=== PATIENT | male | born 1955 | race Caucasian/White ===

== ENCOUNTER → 2021-02-23 | Outpatient (CLI) | payer OTHER ==
[~2021-02-23] MED LIST: ASPIRIN81 MG PO; BRILINTA90 MG PO; BUPROPION HCL75 MG PO; GLYNASE 3 MG TAB3 MG PO; HUMALOG100 UNIT/1 SQ; LANTUS100 UNIT/1 SQ; LIPITOR TAB 2020 MG PO; LISINOPRIL2.5 MG PO; METFORMIN HCL1000 MG PO; METOPROLOL TART25 MG PO
== END ==
LOC: HEART 5 08:30
DX: I25.10 Atherosclerotic heart disease of native coronary artery without angina pectoris (principal); I08.1 Rheumatic disorders of both mitral and tricuspid valves
CPT/HCPCS: 93306